=== PATIENT | female | born 1975 | race Hispanic/Latino ===

== ENCOUNTER 2018-09-08 07:15 | Emergency (ER) | payer OTHER ==
[2018-09-08 08:35] LABS: RAPID GROUP A STREP POSITIVE (NEGATIVE)
[2018-09-08 08:41] LABS: APPEARANCE,URINE Clear (CLEAR); BILIRUBIN,URINE Negative (NEGATIVE); COLOR,URINE Yellow (YELLOW); GLUCOSE, URINE (UA) Negative (NEGATIVE); KETONES,URINE Negative (NEGATIVE); LEUKOCYTE ESTERASE ,URINE Trace (NEGATIVE); NITRATE,URINE Positive (NEGATIVE); OCCULT BLOOD,URINE Negative (NEGATIVE); PH,URINE 7.5 (5.0-8.0); PROTEIN,URINE Negative (NEGATIVE)
[2018-09-08 08:44] LABS: HCG,QUAL RESULT NEGATIVE (NEGATIVE)
[2018-09-08 08:46] LABS: BACTERIA,URINE Moderate /HPF (None Seen); MUCUS,URINE Few LPF (None Seen); RBC,URINE None Seen /HPF (0-1); SQUAMOUS EPITHELIAL CELL,UR Few /HPF (0-2); WBC,URINE 0-1 /HPF (0-1)
== END 2018-09-08 09:18 | disposition home or self-care (01) ==
LOC: EDH 07:15
DX: J02.0 Streptococcal pharyngitis (principal); Z98.890 Other specified postprocedural states
CPT/HCPCS: 81001; 81025; 87804; 87880

== ENCOUNTER 2019-01-10 10:31 | Emergency (ER) | payer OTHER ==
[2019-01-10 11:18] LABS: APPEARANCE,URINE CLOUDY (CLEAR); BILIRUBIN,URINE NEGATIVE (NEGATIVE); COLOR,URINE YELLOW (YELLOW); GLUCOSE, URINE (UA) NEGATIVE (NEGATIVE); KETONES,URINE NEGATIVE (NEGATIVE); LEUKOCYTE ESTERASE ,URINE MODERATE (NEGATIVE); NITRATE,URINE NEGATIVE (NEGATIVE); OCCULT BLOOD,URINE LARGE (NEGATIVE); PH,URINE 7.5 (5.0-8.0); PROTEIN,URINE 30 mg/dL (NEGATIVE); UROBILINOGEN,URINE 0.2 mg/dL (0.2-1.0)
[2019-01-10 11:24] LABS: HCG,QUAL RESULT NEGATIVE (NEGATIVE)
[2019-01-10 11:25] LABS: BACTERIA,URINE Moderate /HPF (None Seen); RBC,URINE 51-100 /HPF (0-1); SQUAMOUS EPITHELIAL CELL,UR Few /HPF (0-2); WBC,URINE 26-50 /HPF (0-1)
[2019-01-10] MEDS ORDERED: LIDOCAINE HCL-MPF 1% 2ML VIAL ONE (11:56)
[2019-01-10] MEDS ORDERED: CEFTRIAXONE SODIUM 1 GM ONE (11:56)
== END 2019-01-10 12:18 | disposition home or self-care (01) ==
LOC: EDH 10:31
DX: N30.90 Cystitis, unspecified without hematuria (principal)
CPT/HCPCS: 81001; 81025; 96372; 99284; J0696; J3490

== ENCOUNTER 2025-02-22 05:16 | Emergency (ER) | payer BC ==
[~2025-02-22] VITALS: Ht 160 cm; Wt 81.6 kg
--- NOTE | 2025-02-22 05:41 | ERN ---
ED Note History of Present Illness Stated Complaint: FALL Chief Complaint: Mechanical Fall Time Seen by MD: 05:27 Dictation: This is a 49-year-old female who presented to the emergency room with complaints of fall about 5 steps. She stretch her left arm for breaking fall and sustained left wrist injury and reports pain and swelling. No injury to head neck or any other area but overall feels she has generalized body aches after the fall. Patient is not on any blood thinners no history of any loss of consciousness. She stated that she was getting ready to go to work when the incident happened Temperature 96.9 pulse 78 respirations 16 blood pressure 179/98 with a pulse oximetry of 100% on room air Allergies: Coded Allergies: No Known Allergies (Unverified Allergy, Unknown, 01/10/19) Past Medical History Past Medical History: No Pertinent History Surgical History: None Family History: Negative Social History: Negative RN Note Reviewed/Agreed w/PFSH: Yes Review of System Dictation Constitutional: Negative for fever,chills, and weight loss Eyes: Negative for injury, pain,redness, and discharge ENT: Negative for injury,pain or swelling Cardiovascular: Negative for chest pain, palpitations, and edema Respiratory: Negative for shortness of breath, cough, and wheezing, Abdomen/GI: Negative for abdominal pain, nausea, vomiting, diarrhea, and constipation Back: Negative for injury and pain : Negative for injury, bleeding and discharge MS/Extremity: Positive for left wrist injury and deformity Skin: Negative for rash, and discoloration Neuro: Negative for headache, weakness, numbness, tingling, and seizure Psych: Negative for suicide ideation, homicidal ideation, and hallucinations Initial Vital Sign VS Vital Signs Date Time Temp Pulse Resp B/P (MAP) Pulse Ox O2 Delivery O2 Flow Rate FiO2 02/22/25 05:17 97.0 78 16 179/98 100 Room Air 02/22/25 05:27 0 21 Physical Exam Dictation General: awake, alert, NAD morbidly obese Head/Face: Normocephalic, atraumatic Eyes: PERRL, EOMI, vision at baseline ENT: oral cavity clear, TMs clear, no signs of infection Neck: Trachea midline, supple, no nuchal rigidity Cardiovascular: RRR, normal S1/S2, No MRGs, no JVD Respiratory: CTAB, no respiratory distress, No rales or wheezes Abdomen: Soft, non-tender, non-distended, normal bowel sounds, no guarding or rebound. Skin: Warm, dry, normal turgor, no rash MS/Extremity: Pulses equal, no cyanosis, neurovascular intact, FROM left wrist swelling able to move all the fingers. No obvious deformity or open wounds noted Neuro: COAx4, GCS 15, strength 5/5, CN 2-12 intact, normal cerebellar exam, normal gait, Psych: Normal behavior, mood, and affect normal Extremities-trace edema without any palpable cords, Homans sign is negative Results (Laboratory/Radiology) Labs Reviewed?: Yes ED Course ED Course Orders Procedure Category Date Status Time Wrist Comp 3+Vws Lt RAD 02/22/25 Taken 05:36 Ketorolac PHA 02/22/25 Complete Tromethamine 30mg/Ml 06:00 Current Medications Medications (Trade) Dose Ordered Sig/Anna Route PRN Reason Start Time Stop Time Status Last Admin Dose Admin Ketorolac Tromethamine (toRADol) 30 mg ONCE ONCE IM 02/22/25 06:00 02/22/25 06:01 DC 02/22/25 05:45 Vital Signs Date Time Temp Pulse Resp B/P (MAP) Pulse Ox O2 Delivery O2 Flow Rate FiO2 02/22/25 05:27 97.3 80 18 146/80 98 Room Air* 0 21 02/22/25 05:17 97.0 78 16 179/98 100 Room Air We will perform imaging and administer medications according to the patient's complaint. Once the results are available, will review and personally interpreted the labs to rule out any acute life-threatening emergency the trach require immediate intervention and treatment. I will then re-evaluate the patient after treatment and diagnostic exams have return to determine whether the patient requires any further testing, can safely be discharged home or need further admission to hospital for additional treatment and evaluation. Apply wrist splint and NSAIDs for pain control If pain persists she could follow up with Orthopedics. Medical Decision Making MDM Differential diagnosis: Fracture, dislocation, contusion, ligamental tear Rationale: Tests considered and ordered secondary to shared decision making include: Previous outside records reviewed: Old ER visits. Risk of complication and/or morbidity or mortality of patient management: None Medications-Per medication reconciliation Need for hospitalization: Patient does not meet criteria for hospitalization. Need for emergency major/minor surgery: No There are no social concerns with this patient. Prescription drug management Prescriptions will include symptomatic care Patient's prior external medical records from other ER visits were reviewed by me as indicated. Prior testing and results from previous visits were reviewed. Prior tests were taken into account with medical decision making and resource utilization, independent historian/historians were used to obtain complete medical history. I independently interpreted the test that were performed, results were reviewed by me and considered findings on radiology if ordered. Medical management and examination interpretation discussions were had by me with other qualified healthcare professionals as indicated for the patient's care. Problem List Problem List: (1) Fall down steps (2) Pain and swelling of left wrist (3) Contusion of wrist, left DX & DISP Disposition: Discharge Departure Impression: Primary Impression: Fall down steps Additional Impressions: Pain and swelling of left wrist, Contusion of wrist, left Condition: Stable Scripts Ketorolac Tromethamine (Toradol) 10 Mg Tab 10 MG PO QID for pain for 5 Days, #20 TAB 0 Refills Prov: CHRISTOPHER PETER MD 02/22/25 Additional Instructions: Patient and the caregiver have been informed of all the diagnostic tests and the imaging conducted during the today's visit to the emergency room and has verbalized understanding of the results I have personally reviewed and interpreted all diagnostic exams performed here in the ER today as well as the vital signs documented by the nursing staff. The patient is now being discharged to home and should follow up with the primary care physician or the specialist as directed by the ER staff. Follow-up with primary care provider in 1 to 2 days. Take medications as directed here in the emergency room. Okay to continue home medications unless otherwise discussed during your visit in the emergency room today. Return to your nearest emergency room if symptoms worsen or if there is no improvement. Call 911 if you need immediate assistance. Take Tylenol or Motrin [id number] as needed and if no contraindications are present. Increase oral hydration. A wound culture or urine culture was ordered here in the emergency room department please follow-up with primary care provider and advise them to get repeat ports from our facility. If you had any Eladio wrap/splints that were applied here, please do not remove them until you see your primary care or specialty. Referrals: SELF,REFERRAL (PCP) CHRISTOPHER PETER MD Feb 22, 2025 05:41
[2025-02-22] MEDS ORDERED: KETO10 PO (06:29)
--- NOTE | 2025-02-22 06:35 | NUR ---
WRIST BRACED APPLIED ORDERED
--- NOTE | 2025-02-22 06:40 | HMCIMG ---
EXAM: CR left Wrist, 3 View. CLINICAL HISTORY: fall on outstretched left arm-pain and swelling COMPARISON: None provided. FINDINGS: BONES: No acute fracture or aggressive appearing osseous lesion. JOINTS: No dislocation. The carpal bones demonstrate normal alignment. SOFT TISSUES: The soft tissues are unremarkable. IMPRESSION: No acute osseous abnormality. No acute fracture or dislocation. /[place]
[2025-02-22 06:43] VITALS: BP 138/78; PULSE 76; RESP 18; TEMP 97.8; O2SAT 100
== END 2025-02-22 06:45 | disposition home or self-care (01) ==
LOC: EDH 05:16
DX: S60.212A Contusion of left wrist, initial encounter (principal); W10.8XXA Fall (on) (from) other stairs and steps, initial encounter; Y93.89 Activity, other specified; Y92.89 Other specified places as the place of occurrence of the external cause; Y99.8 Other external cause status
CPT/HCPCS: 99284; 73110; 29260; 96372; J1885

== ENCOUNTER 2025-06-23 09:01 | Emergency (ER) | payer BC ==
[~2025-06-23] VITALS: Ht 160 cm; Wt 112.5 kg
[~2025-06-23 09:01] MED LIST: KETO10 PO
--- NOTE | 2025-06-23 09:21 | NUR ---
Yari roth in ED - 06/23/25 at 0923 by PIPPA PT TAKEN TO CT AT THIS TIME.
--- NOTE | 2025-06-23 09:43 | ERN ---
General Chief Complaint: Abdominal Pain Stated Complaint: RLQ Time Seen by MD: 09:18 Source: patient History of Present Illness Initial Comments The patient is a 49-year-old female who came to the ER with complaint of back pain radiating to the right lower leg. As per the patient, she was stretching in the morning and she felt a popping sensation in her right hip that went back in and after that she developed burning pain in her right lower quadrant. The patient is able to walk, urinate and had a bowel movement. Allergies: Coded Allergies: No Known Allergies (Unverified Allergy, Unknown, 01/10/19) Home Meds Active Scripts Ketorolac Tromethamine (Toradol) 10 Mg Tab, 10 MG PO QID for pain for 5 Days, #2 0 TAB 0 Refills Prov:CHRISTOPHER PETER MD 02/22/25 Past Medical History Past Medical History: No Pertinent History Past Surgical History: Family History Family History: Negative Social History Social History: Negative Female( History) LMP: Jun 11, 2025 Constitutional: (-) chills, (-) diaphoresis, (-) fever, (-) malaise, (-) weakness, (-) other documentation EENTM: (-) eye pain, (-) blurred vision, (-) tearing, (-) double vision, (-) ear pain, (-) ear discharge, (-) nose pain, (-) nose congestion, (-) throat pain, (-) Throat swelling, (-) mouth pain, (-) tooth pain, (-) mouth swelling, (-) other documentation Respiratory: (-) cough, (-) orthopnea, (-) short of breath, (-) stridor, (-) wheezing, (-) other documentation Cardiovascular: (-) chest pain, (-) edema, (-) palpitations, (-) syncope, (-) dyspnea on exertion, (-) other documentation Gastrointestinal/Abdominal: (-) nausea, (-) vomiting, (-) diarrhea, (-) abdominal pain, (-) abdominal distention, (-) constipation, (-) rectal bleeding, (-) dark stool/melena, (-) other documentation Genitourinary: (-) vaginal discharge, (-) vaginal bleeding, (-) dysuria, (-) frequency, (-) hematuria, (-) pain, (-) other documentation Musculoskeletal: (+) back pain, (+) muscle pain Skin: (-) laceration, (-) contusion, (-) abrasion, (-) abscess, (-) rash, (-) change in color, (-) change in hair, (-) change in nails, (-) diaphoresis, (-) dryness, (-) other documentation Neuro: (-) altered mental status, (-) headache, (-) syncope, (-) paralysis, (-) numbness, (-) seizure, (-) pre-existing deficit, (-) tremors, (-) weakness, (-) dizziness, (-) slurred speech, (-) vertigo, (-) other documentation Psych: (-) depression, (-) suicidal ideation, (-) anxiety, (-) emotional problems, (-) auditory hallucinations, (-) visual hallucinations Hematologic/Lymphatic: (-) anemia, (-) blood clots, (-) easy bleeding, (-) easy bruising, (-) swollen glands, (-) other documentation Immunological/Allergic: (-) food allergy, (-) grass allergy, (-) mold allergy, (-) pollen allergy, (-) HIV/AIDS, (-) transplant, (-) othe documentation Physical Exam General Appearance: (+) mild distress, (+) obese Orientation: (+) alert, (+) oriented x 3 Head/Face Trauma: No Ear, Nose, Throat: (+) hearing grossly normal; (-) normal ENT inspection, (-) moist mucous membraine, (-) normal pharynx, (- ) normal TM, (-) abnormal TM, (-) pharyngeal erythema, (-) sinus drainange, (-) sinus pain, (-) tonsillar exudate, (-) tonsillar swelling, (-) nasal drip, (-) nasal congestion, (-) hearing decreased, (-) dry mucous membraine, (-) other documentation Neck: (-) normal inspection, (-) supple, (-) full range of motion, (-) no JVD, (-) non-tender, (-) no bruit, (-) tender, (-) limited range of motion, (-) tender lateral, (-) tender midline, (-) thyromegaly, (-) lymphadenopathy, (-) masses, (-) carotid bruit, (-) other documentaion Respiratory: (-) chest non-tender, (-) lungs clear, (-) well ventilated, (-) decreased breath sounds, (-) retractions, (-) abnormal breath sound, (-) crackles, (-) plerual rub, (-) rales, (-) rhonchi, (-) stridor, (-) wheezing, (- ) other documentation Vascular: (-) no edema, (-) normal peripheral pulse, (-) no JVD, (-) abdominal aorta, (-) abnormal peripheral pulse, (-) carotid bruit, (-) edema, (-) JVD, (-) varicose vein, (-) other documentation Gastrointestinal: (-) soft, (-) non-tender, (-) no organomegaly, (-) bowel sound present, (-) distended, (-) tender, (-) abnormal bowel sounds, (-) bowel sound absent, (-) rebound, (-) kearney's sign, (-) guarding, (-) hernia, (-) mass, (-) pulsatile mass, (-) CVA tenderness, (-) hepatomegaly, (-) spleenomegaly, (-) other documentation, (-) McBerney's, (-) other documentation Extremities: (+) normal range of motion Neurologic/Psychiatric: (-) normal speech, (-) no motor defecits, (-) no sensory deficits, (-) ultimate hoops referee II-XII nml as tested, (-) normal gait, (-) normal mood/affect, (-) abnormal cerebellar tests, (-) abnormal gait, (-) aphasia, (-) facial droop, (-) other documentation Results Laboratory and Microbiology Labs Reviewed?: Yes MDM MDM: Differential diagnosis: Sciatica, back spasm Patient's hip/pelvis x-ray was nonsignificant for any fracture Patient was given a lidocaine patch and [id number] mg once in the ER for pain after with the patient stated that he was feeling better. He was also educated regarding physical therapy to strengthen her right hip muscles. ED Course Orders Procedure Category Date Status Time Lidocaine (Lidocaine PHA 06/23/25 Complete Patch 4%) 10:00 Hip Unilat 2-3vw Right RAD 06/23/25 Taken 09:38 Ketorolac PHA 06/23/25 Complete Tromethamine 15mg/Ml 10:00 Current Medications Medications (Trade) Dose Ordered Sig/Anna Route PRN Reason Start Time Stop Time Status Last Admin Dose Admin Ketorolac Tromethamine (toRADol) 15 mg ONCE ONCE IM 06/23/25 10:00 06/23/25 10:01 DC 06/23/25 10:14 Lidocaine (Lidocaine Patch 4%) 1 each ONCE ONCE TP 06/23/25 10:00 06/23/25 10:01 DC 06/23/25 10:14 Vital Signs Date Time Temp Pulse Resp B/P (MAP) Pulse Ox O2 Delivery O2 Flow Rate FiO2 06/23/25 09:35 98.2 78 20 180/91 98 Room Air* 0 21 06/23/25 09:04 98.4 83 16 165/101 99 Room Air 0 DX & DISP Disposition: Discharge Departure Impression: Primary Impression: Sciatica Additional Impression: Muscle spasm Condition: Stable Scripts Naproxen (Naproxen) 250 Mg Tablet 1 TAB PO BID for pain for 10 Days, #20 TAB 0 Refills Prov: BISHNU OGLESBY MD 06/23/25 Lidocaine (Lidocaine Pain Relief) 4 % Adh..patch 1 PATCH TP BID for 5 Days, #10 PATCH 0 Refills Prov: BISHNU OGLESBY MD 06/23/25 Additional Instructions: *You were seen in the ER for hip pain and sciatica. It was discussed that you would benefit from physical therapy to strengthen your hip joint muscles. *Follow up with your primary care physician in 2 - 3 days after discharge. *Continue all medications as prescribed. Do not discontinue or change dosages without consulting your PCP. *Gradually resume normal activities as tolerated. *Continue a balanced diet . Reduce salt intake to help manage BP. *Seek immediate medical attention if you experience chest pain, SOB or severe headache. *Take tylenol as needed for pain Referrals: Trini ROSAS MD (PCP) BISHNU OGLESBY MD Jun 23, 2025 09:43
[2025-06-23] MEDS: LIDOCAINE 4% ADH..PATCH TP ONE (10:14)
--- NOTE | 2025-06-23 10:29 | NUR ---
PT FOUND WALKING AROUND ROOM. PT STATES SHE WILL NOT BE FALLING. EDUCATED ON FALL RISKS. PT AGREED AND UNDERSTOOD. PT RESUMED AMBULATING AROUND PT ROOM.
[2025-06-23] MEDS ORDERED: LIDO1ADH71 TP (10:31)
[2025-06-23] MEDS ORDERED: NAPR-1196 PO (10:31)
[2025-06-23 11:03] VITALS: BP 165/82; PULSE 91; RESP 20; TEMP 98.2; O2SAT 99
--- NOTE | 2025-06-23 11:09 | HMCIMG ---
EXAM: CR right Hip, 2 views. CLINICAL HISTORY: Pain in the hip joint COMPARISON: None provided. FINDINGS: BONES: No acute fracture or aggressive appearing osseous lesion. JOINTS: No dislocation. The joint spaces are normal. SOFT TISSUES: The soft tissues are unremarkable. IMPRESSION: No acute osseous abnormality. /[place]
== END 2025-06-23 11:04 | disposition home or self-care (01) ==
LOC: EDH 09:01
DX: M54.41 Lumbago with sciatica, right side (principal); R10.31 Right lower quadrant pain; M62.830 Muscle spasm of back; Z98.890 Other specified postprocedural states
CPT/HCPCS: 99284; 73502; 96372; J1885

== ENCOUNTER 2025-06-30 18:24 | Emergency (ER) | payer BC ==
[~2025-06-30] VITALS: Ht 160 cm; Wt 108.9 kg
[~2025-06-30 18:24] MED LIST changes: +LIDO1ADH71 TP; +NAPR-1196 PO
[2025-06-30 18:47] LABS: GLUCOSE, URINE (UA) NEGATIVE (NEGATIVE); LEUKOCYTE ESTERASE ,URINE 500 Leu/uL (NEGATIVE); NITRATE,URINE NEGATIVE (NEGATIVE); OCCULT BLOOD,URINE SMALL (NEGATIVE)
[2025-06-30 18:48] LABS: HCG,QUALITATIVE URINE NEGATIVE (NEGATIVE)
[2025-06-30 18:49] LABS: ADD UA MICROSCOPIC YES; APPEARANCE,URINE HAZY (CLEAR)
[2025-06-30 19:02] LABS: IMMATURE GRANULOCYTE ABSOLUTE 0.19 K/uL (0-1); NUCLEATED RED BLOOD CELLS 0.0 % (0.0-0.19); PLATELET COUNT (AUTO) 490 K/uL (130-400); RED BLOOD CELL COUNT(AUTO) 4.15 MIL/uL (4.00-5.50); RED CELL DISTRIBUTION WIDTH 13.0 % (11.0-15.5); WHITE BLOOD COUNT (AUTO) 12.1 K/uL (4.8-10.8)
[2025-06-30 19:03] LABS: SQUAMOUS EPITHELIAL CELL,UR MANY /HPF (0-2)
[2025-06-30] MEDS: 0.9%NACL 1000ML 1,000 ML IV STA (19:04)
[2025-06-30 19:09] LABS: CREATININE 0.8 mg/dL (0.5-1.0); GLOMERULAR FILTR. RATE CALC 89.0 mL/min (>90); GLUCOSE,RANDOM 109.0 mg/dL (70-105); SODIUM SERUM 135.0 mmol/L (136-145); UREA NITROGEN, BLOOD 7.0 mg/dL (7-18)
[2025-06-30 19:30] LABS: BAND NEUTROPHILS % (MANUAL) 8 % (0-2); LYMPHOCYTES % (MANUAL) 17 % (22-44); MAN.DIFF COMMENT-IMPRESSION MANUAL DIFFERENTIAL; MONOCYTES % (MANUAL) 8 % (2-9); PLATELET MORPHOLOGY COMMENT SLIGHT INCREASED; SEGMENTED NEUTROPHILS % 67 % (40-70); WBC MORPHOLOGY CONSISTENT W/DIFF
[2025-06-30] MEDS ORDERED: IOHEXOL-350 75 ML VIAL IV ONE (20:01)
--- NOTE | 2025-06-30 20:29 | HMCIMG ---
EXAMINATION: COMPLETE TRANSABDOMINAL ULTRASOUND OF PELVIS. CLINICAL HISTORY: Right pelvic pain, to rule out torsion. COMPARISON: None provided. TECHNIQUE: Multiple real-time grayscale images of the pelvis were obtained with a transabdominal transducer. In addition, color Doppler is medically necessary to assess for vascularity and blood flow. FINDINGS: The uterus is anteverted, bulky in caliber, and measures 12.3 x 5.6 x 7.5 cm in the craniocaudal, AP, and transverse dimensions, respectively. There is an intramural fibroid that measures 2.3 x 1.8 cm in the posterior wall abutting the endometrial cavity. The endometrium measures approximately 0.32 cm. Cervix appears normal. The right ovary measures 5.7 x 4.3 x 5.8 cm. There is a complex cyst that measures 3.9 x 3.3 cm. The left ovary measures 2.8 x 1.5 x 2.2 cm. The vascularity of the ovaries is present; there is no torsion. There is no free fluid in the cul-de-sac. IMPRESSION: Bulky uterus with fibroid. Enlarged right ovary with a complex cyst. Recommend MRI pelvis. /[place]
--- NOTE | 2025-06-30 21:42 | ERN ---
ED Note History of Present Illness Stated Complaint: RLQ PAIN Chief Complaint: Abdominal Pain Time Seen by MD: 18:26 Time Seen by Midlevel: 18:30 Dictation: 49-year-old female with a no known medical history and only surgical history of coming in complaining of right lower quadrant pain. Patient states this pain started about one week ago. Denies having any fever, nausea or vomiting or diarrhea. Denies any urinary symptoms. LMP was sent the beginning of this month. Allergies: Coded Allergies: No Known Allergies (Unverified Allergy, Unknown, 01/10/19) Home Meds Active Scripts Naproxen (Naproxen) 250 Mg Tablet, 1 TAB PO BID for pain for 10 Days, #20 TAB 0 Refills Prov:BISHNU OGLESBY MD 06/23/25 Lidocaine (Lidocaine Pain Relief) 4 % Adh..patch, 1 PATCH TP BID for 5 Days, #10 PATCH 0 Refills Prov:BISHNU OGLESBY MD 06/23/25 Ketorolac Tromethamine (Toradol) 10 Mg Tab, 10 MG PO QID for pain for 5 Days, #2 0 TAB 0 Refills Prov:CHRISTOPHER PETER MD 02/22/25 Past Medical History Past Medical History: No Pertinent History Surgical History: Family History: Negative Social History: Negative LMP: Jun 04, 2025 Review of System Dictation Constitutional: Negative for fever,chills, and weight loss Eyes: Negative for injury, pain,redness, and discharge ENT: Negative for injury,pain or swelling Cardiovascular: Negative for chest pain, palpitations, and edema Respiratory: Negative for shortness of breath, cough, and wheezing, Abdomen/GI: Right quadrant pain Back: Negative for injury and pain : Negative for injury, bleeding and discharge MS/Extremity: Negative for injury and deformity Skin: Negative for rash, and discoloration Neuro: Negative for headache, weakness, numbness, tingling, and seizure Psych: Negative for suicide ideation, homicidal ideation, and hallucinations Review of Systems: was completed Initial Vital Sign VS Vital Signs Date Time Temp Pulse Resp B/P (MAP) Pulse Ox O2 Delivery O2 Flow Rate FiO2 06/30/25 18:26 99.1 104 16 175/87 99 Room Air 0 06/30/25 21:35 21 Physical Exam Dictation General: awake, alert, NAD Head/Face: Normocephalic, atraumatic Eyes: PERRL, EOMI, vision at baseline ENT: oral cavity clear, TMs clear, no signs of infection Neck: Trachea midline, supple, no nuchal rigidity Cardiovascular: RRR, normal S1/S2, No MRGs, no JVD Respiratory: CTAB, no respiratory distress, No rales or wheezes Abdomen: Soft, tenderness to palpation to the right lower quadrant, non- distended, normal bowel sounds, no guarding or rebound. Skin: Warm, dry, normal turgor, no rash MS/Extremity: Pulses equal, no cyanosis, neurovascular intact, FROM Neuro: COAx4, GCS 15, strength 5/5, CN 2-12 intact, normal cerebellar exam, normal gait, Psych: Normal behavior, mood, and affect normal Results (Laboratory/Radiology) Laboratory/Radiology Laboratory Tests Test 06/30/25 18:40 06/30/25 18:48 Urine Color YELLOW (YELLOW) Urine Appearance HAZY (CLEAR) Urine pH 6.0 (5.0-8.0) Urine Specific [place] 1.031 (1.001-1.031) Urine Protein 70 mg/dL (NEGATIVE) H Urine Glucose (UA) NEGATIVE mg/dL (NEGATIVE) Urine Ketones NEGATIVE mg/dL (NEGATIVE) Urine Occult Blood SMALL (NEGATIVE) H Urine Nitrate NEGATIVE (NEGATIVE) Urine Bilirubin NEGATIVE mg/dL (NEGATIVE) Urine Urobilinogen 2.0 mg/dL (0.2-1.0) H Urine Leukocyte Esterase 500 Raeann/uL (NEGATIVE) H Urine RBC 11-25 /HPF (0-1) H Urine WBC TNTC /HPF (0-1) H Urine Squamous Epithelial Cells MANY /HPF (0-2) Urine Amorphous Crystals (Auto) RARE /LPF (None Seen) Urine Bacteria FEW /HPF (None Seen) Urine HCG, Qualitative NEGATIVE (NEGATIVE) White Blood Count 12.1 K/uL (4.8-10.8) H Red Blood Count 4.15 MIL/uL (4.00-5.50) Hemoglobin 11.6 g/dL (12.0-16.0) L Hematocrit 35.6 % (36-48) L Mean Corpuscular Volume 85.8 fL (79-99) Mean Corpuscular Hemoglobin 28.0 pg (27.0-33.0) Mean Corpuscular Hemoglobin Concent 32.6 g/dL (32.0-36.0) Red Cell Distribution Width 13.0 % (11.0-15.5) Platelet Count 490 K/uL (130-400) H Mean Platelet Volume 10.4 fL (7.5-10.5) Immature Granulocyte % (Auto) 1.6 % (0-1) H Neutrophils (%) (Auto) 74.2 % (40.0-77.0) Lymphocytes (%) (Auto) 16.1 % (21.0-51.0) L Monocytes (%) (Auto) 7.0 % (3.0-13.0) Eosinophils (%) (Auto) 0.8 % (0.0-8.0) Basophils (%) (Auto) 0.3 % (0.0-5.0) Neutrophils # (Auto) 9.0 K/uL (1.8-7.7) H Lymphocytes # (Auto) 2.0 K/uL (1.0-4.8) Monocytes # (Auto) 0.9 K/uL (0.1-1.0) Eosinophils # (Auto) 0.10 K/uL (0.00-0.70) Basophils # (Auto) 0.04 K/uL (0.00-0.20) Absolute Immature Granulocyte (auto 0.19 K/uL (0-1) Segmented Neutrophils % 67 % (40-70) Band Neutrophils % 8 % (0-2) H Lymphocytes % (Manual) 17 % (22-44) L Monocytes % (Manual) 8 % (2-9) Nucleated Red Blood Cells 0.0 % (0.0-0.19) Differential Comment MANUAL DIFFERENTIAL White Cell Morphology Comment CONSISTENT W/DIFF Platelet Morphology Comment SLIGHT INCREASED Red Blood Cell Morphology ANISO 1+ Sodium Level 135 mmol/L (136-145) L Potassium Level 4.3 mmol/L (3.5-5.1) Chloride Level 101 mmol/L (101-111) Carbon Dioxide Level 27 mmol/L (21-32) Blood Urea Nitrogen 7 mg/dL (7-18) Creatinine 0.8 mg/dL (0.5-1.0) Glomerular Filtration Rate Calc 89 mL/min (>90) Random Glucose 109 mg/dL (70-105) H Total Calcium 9.1 mg/dL (8.5-10.1) Labs Reviewed?: Yes Ultrasound Comment: [facility] [address] [place] [address] IMAGING REPORT Signed PATIENT: BRII BAKER MR#: [id number] : 1975 SEX: F AGE: 49 LOCATION: [facility] ORDER 31 STATUS: [facility] REPORT#: [id number] SERVICE 29 REASON: r/o torsion ORDERING PHYSICIAN: TERESA TOLENTINO CNP PROCEDURE: PELVCOMP - US PELVIC NON-OB COMP EXAMINATION: COMPLETE TRANSABDOMINAL ULTRASOUND OF PELVIS. CLINICAL HISTORY: Right pelvic pain, to rule out torsion. COMPARISON: None provided. TECHNIQUE: Multiple real-time grayscale images of the pelvis were obtained with a transabdominal transducer. In addition, color Doppler is medically necessary to assess for vascularity and blood flow. FINDINGS: The uterus is anteverted, bulky in caliber, and measures 12.3 x 5.6 x 7.5 cm in the craniocaudal, AP, and transverse dimensions, respectively. There is an intramural fibroid that measures 2.3 x 1.8 cm in the posterior wall abutting the endometrial cavity. The endometrium measures approximately 0.32 cm. Cervix appears normal. The right ovary measures 5.7 x 4.3 x 5.8 cm. There is a complex cyst that measures 3.9 x 3.3 cm. The left ovary measures 2.8 x 1.5 x 2.2 cm. The vascularity of the ovaries is present; there is no torsion. There is no free fluid in the cul-de-sac. IMPRESSION: Bulky uterus with fibroid. Enlarged right ovary with a complex cyst. Recommend MRI pelvis. /Richardson DICTATED BY: SUSAN FRYE Jr., MD DATE: 06/30/252126 ELECTRONICALLY SIGNED BY: SUSAN FRYE Jr., MD DATE: 06/30/252126 ED Course ED Course Orders Procedure Category Date Status Time Cbc With Differential LAB 06/30/25 Complete 18:30 Basic Metabolic Panel LAB 06/30/25 Complete 18:30 Urinalysis Profile LAB 06/30/25 Complete 18:30 Ct Abdomen/Pelvis CT 06/30/25 Taken W/Contrast 18:30 Us Pelvic Non-Ob Comp US 06/30/25 Resulted 18:30 ,Urine Test LAB 06/30/25 Complete 18:30 0.9%Nacl 1000ml (Ns PHA 06/30/25 Complete 1000ml) 18:32 Culture Urine MIKA 06/30/25 In Process 18:49 Manual Differential LAB 06/30/25 Complete 18:48 Ketorolac PHA 06/30/25 Complete Tromethamine 15mg/Ml 19:06 Iohexol (Omnipaque) PHA 06/30/25 Complete 20:01 Ceftriaxone 1g Vial PHA 06/30/25 Complete (Rocephine 1g Inj) 21:00 Current Medications Medications (Trade) Dose Ordered Sig/Anna Route PRN Reason Start Time Stop Time Status Last Admin Dose Admin Ceftriaxone Sodium (ROCEphine 1G INJ) 1 gm ONCE IVPB 06/30/25 21:00 06/30/25 23:30 DC 06/30/25 20:57 Iohexol (Omnipaque) 75 ml STK-MED ONCE IV 06/30/25 20:01 06/30/25 20:01 DC Ketorolac Tromethamine (toRADol) 15 mg ONCE STAT IV 06/30/25 19:06 06/30/25 19:07 DC 06/30/25 19:26 Sodium Chloride 1,000 ml @ 1,000 mls/hr Q1H STAT IV 06/30/25 18:32 06/30/25 19:31 DC 06/30/25 19:04 Vital Signs Date Time Temp Pulse Resp B/P (MAP) Pulse Ox O2 Delivery O2 Flow Rate FiO2 07/01/25 01:26 98.6 86 18 126/67 100 Room Air* 0 21 06/30/25 21:35 98.6 92 18 160/84 99 Room Air* 0 21 06/30/25 18:26 99.1 104 16 175/87 99 Room Air 0 Medical Decision Making MDM MDM: 49-year-old female with a no known medical history and only surgical history of coming in complaining of right lower quadrant pain. Patient states this pain started about one week ago. Denies having any fever, nausea or vomiting or diarrhea. Denies any urinary symptoms. LMP was sent the beginning of this month. CBC shows white count of 12, hemoglobin is 11 hematocrit is 35, no thrombocytopenia. Chemistry shows mild hyponatremia at 135 a.m.. Fluids given in the emergency room. No electrolyte abnormality. Normal kidney function. UA shows evidence of urinary tract infection. Negative test. Ultrasound is showing bulky uterus with fibroid, enlarged right ovarian complex cyst. There is flow to both ovaries. No torsion. No free fluid in the cul-de-sac. CT scan of the abdomen and pelvis was done to rule out appendicitis and or other other intra-abdominal etiology. CT scan is showing a complex cystic mass in the right adnexal region with the associated fat stranding in diagnostics include ovarian torsion or conceivably tubo-ovarian abscess. Patient is pending possible transfer to a higher level of care to have OBGYN consult. Differential diagnosis: Ovaian torsion, appendicitis, constipation, urinary tract infection Rationale: Tests considered and ordered secondary to shared decision making include: labs, ECG and radiology Previous outside records reviewed: Old ER visits. Risk of complication and/or morbidity or mortality of patient management: None Medications-Per medication reconciliation Need for hospitalization: Patient does meet criteria for hospitalization. Need for emergency major/minor surgery: No There are no social concerns with this patient. Prescription drug management Prescriptions will include symptomatic care Patient's prior external medical records from other ER visits were reviewed by me as indicated. Prior testing and results from previous visits were reviewed. Prior tests were taken into account with medical decision making and resource utilization, independent historian/historians were used to obtain complete medical history. I independently interpreted the test that were performed, results were reviewed by me and considered findings on radiology if ordered. Medical management and examination interpretation discussions were had by me with other qualified healthcare professionals as indicated for the patient's care. Patient will be transferred to [facility] Dr. Lee GOMES accepting, hospitalist Dr. Lopez accepting DX & DISP Disposition: Transfer Decision to Admit Time: 03:22 Departure Impression: Primary Impression: Ovarian abscess Additional Impression: Hydrosalpinx Condition: Stable Referrals: Trini ROSAS MD (PCP) TERESA TOLENTINO CNP Jun 30, 2025 21:42 VIC FERNÁNDEZ MD Jul 01, 2025 01:17
[2025-07-01 01:26] VITALS: BP 126/67; PULSE 86; RESP 18; TEMP 98.6; O2SAT 100
--- NOTE | 2025-07-01 05:43 | NUR ---
REPORT CALLED TO AMMY KINSEY AT [facility]
--- NOTE | 2025-07-01 05:45 | NUR ---
[facility] NOTIFIED OF PATIENT TRANSFER
== END 2025-07-01 06:20 | disposition short-term general hospital (02) ==
LOC: EDH 18:24
DX: N70.92 Oophoritis, unspecified (principal); N70.11 Chronic salpingitis; Z79.899 Other long term (current) drug therapy; Z98.890 Other specified postprocedural states
CPT/HCPCS: 99285; 74177; 96365; 76856; 96366; 96375; 80048; 85025; 87086; 81001; 81025; 36415; J1885; J7030; J0696; Q9967; J1171